=== PATIENT | female | born 1980 | race Hispanic/Latino ===

== ENCOUNTER 2020-08-03 17:03 | Emergency (ER) | payer BC ==
[2020-08-03] MEDS ORDERED: FLUORESCEIN SODIUM 1 MG/WRAP ONE (17:47)
[2020-08-03] MEDS ORDERED: TETRACAINE HCL 0.5% 4ML OPTH ONE (17:47)
--- NOTE | 2020-08-03 17:54 | ER ---
Nurse's Notes [facility] Name: Rica Alegre Age: 40 yrs Sex: Female : 1980 Arrival Date: 08/03/2020 Time: 17:04 Bed 13 Private MD: Carolina Doss Diagnosis: Conjunctivitis;Chemosis;Injury of conjunctiva and corneal abrasion without foreign body Presentation: 08/03 17:06 Chief complaint: Chief complaint: "I was just cutting some jimenez with a little handsaw aa5 and some debris got my left eye and now it's red". 17:06 Coronavirus screen: Client denies travel out of the [place] in the last 14 days. At this aa5 time, the client does not indicate any symptoms associated with coronavirus-19. Ebola Screen: Patient negative for fever greater than or equal to 101.5 degrees Fahrenheit, and additional compatible Ebola Virus Disease symptoms. Initial Sepsis Screen: Does the patient meet any 2 criteria? No. Patient's initial sepsis screen is negative. Does the patient have a suspected source of infection? No. Patient's initial sepsis screen is negative. Risk Assessment: Do you want to hurt yourself or someone else? Patient reports no desire to harm self or others. Onset of symptoms was August 03, 2020. 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 - Social history:: Smoking status: Patient denies any tobacco usage or history of. Screenin:15 Abuse screen: Denies threats or abuse. Denies injuries from another. Nutritional ca1 screening: No deficits noted. Tuberculosis screening: No symptoms or risk factors identified. Fall Risk None identified. Assessment: 17:15 General: Appears in no apparent distress. comfortable, Behavior is calm, cooperative, ca1 appropriate for age. Pain: Complains of pain in left eye Pain currently is 8 out of 10 on a pain scale. Pain began 1 hour ago. Neuro: Level of Consciousness is awake, alert, obeys commands, Oriented to person, place, time, situation. EENT: Eyes are tearing on outer aspect of conjuctiva of left eye and inner aspect of conjunctiva of left eye Sclera/Cornea are reddened in outer aspect of conjuctiva of left eye and inner aspect of conjunctiva of left eye. Derm: Skin is intact, is healthy with good turgor, Skin is pink, warm \\T\\ dry. Musculoskeletal: Circulation, motion, and sensation intact. Capillary refill < 3 seconds. 18:30 Reassessment: Patient appears in no apparent distress at this time. Patient and/or ca1 family updated on plan of care and expected duration. Pain level reassessed. Patient is alert, oriented x 3, equal unlabored respirations, skin warm/dry/pink. Vital Signs: 17:06 Resp 16 S; Temp 97.7(TE); aa5 17:35 BP 118 / 95; ca1 17:35 Pulse 91; Pulse Ox 98% on R/A; Weight 86.18 kg (R); Height 5 ft. 4 in. (162.56 cm) (R); ca1 18:30 BP 121 / 89; Pulse 86; Resp 16; Pulse Ox 99% on R/A; ca1 17:35 Body Mass Index 32.61 (86.18 kg, 162.56 cm) ca1 ED Course: 17:04 Patient arrived in ED. ag5 17:05 Carolina Doss MD is Private Physician. ag5 17:06 Arm band placed on Patient placed in an exam room, on a stretcher. aa5 17:11 Rocio Davey, JITENDRA is Primary Nurse. ca1 17:13 Dolores Jones FNP-C is [facility]. snw 17:13 Mya Sarah MD is Attending Physician. snw 17:15 Patient did not have IV access during this emergency room visit. ca1 17:23 Triage completed. aa5 17:36 Patient has correct armband on for positive identification. Bed in low position. Call ca1 light in reach. Side rails up X 1. Pulse ox on. NIBP on. Warm blanket given. Head of bed elevated. 17:52 Assist provider with eye exam of left eye. using fluorescein stain, Performed by Dolores ca1 Karen FONSECA Patient tolerated well. 17:53 Smitha Irving MD is Referral Physician. snw Administered Medications: 17:50 Drug: Tetracaine Drops 0.5 % 1 drops {Note: by JHONATAN Bernal.} Route: Ophthalmic; Site: ca1 left eye; 17:52 Drug: Fluorescein Strip 1 strip {Note: by JHONATAN Bernal.} Route: Ophthalmic; Site: left ca1 eye; 18:05 Drug: [place] 5 mg-325 mg 1 tabs {Note: rass 0.} Route: PO; ca1 18:47 Follow up: Response: No adverse reaction; Pain is decreased; RASS: Alert and Calm (0) ca1 18:10 Drug: ZyrTEC - Cetirizine 10 mg Route: PO; ca1 18:48 Follow up: Response: No adverse reaction ca1 18:13 Drug: Tetanus-Diphtheria Toxoid Adult 0.5 ml {Pediatric Allergist: [employer]. Exp: ca1 12/11/2021. Lot #: [id number]. } Route: IM; Site: right deltoid; 18:48 Follow up: Response: No adverse reaction ca1 18:47 Drug: ERYTHromycin Ointment 1 application Route: Ophthalmic; Site: left eye; ca1 Outcome: 17:54 Discharge ordered by . snw 18:51 Discharged to home ambulatory, with family. ca1 18:51 Condition: stable 18:51 Discharge instructions given to patient, Instructed on discharge instructions, follow up and referral plans. medication usage, Demonstrated understanding of instructions, follow-up care, medications, Prescriptions given X 3. 18:51 Patient left the ED. ca1 Signatures: Dolores Jones FNP-C TEXTILE COLORIST DYER-Annalise Sears RN RN aa5 AcRocio coffman RN RN ca1 Tanja Willard ag5 Corrections: (The following items were deleted from the chart) 18:51 18:15 Assist provider with eye exam of left eye. using fluorescein stain, Performed by ca1 Dolores FONSECA Patient tolerated well. ca1
--- NOTE | 2020-08-03 17:54 | EDPHYS ---
Physician Documentation [facility] Name: Rica Alegre Age: 40 yrs Sex: Female : 1980 Arrival Date: 08/03/2020 Time: 17:04 Bed 13 Private MD: Carolina Doss ED Physician Mya Sarah HPI: 08/03 18:05 This 40 yrs old Female presents to ER via Ambulatory with complaints of snw Foreign Body In Eye. 18:05 The patient is experiencing foreign body sensation, pain, redness, tearing. Onset: The snw symptoms/episode began/occurred suddenly, today. Duration: the symptoms are continuous. Associated signs and symptoms: Pertinent positives: None. Patient wears glasses. Severity of symptoms: At their worst the symptoms were moderate severe in the emergency department the symptoms are unchanged. The patient has not experienced similar symptoms in the past. It is unknown whether or not the patient has recently seen a physician. 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 - Social history:: Smoking status: Patient denies any tobacco usage or history of. ROS: 18:04 Constitutional: Negative for fever, chills, and weight loss, ENT: Negative for injury, snw pain, and discharge, Neck: Negative for injury, pain, and swelling, Cardiovascular: Negative for chest pain, palpitations, and edema, Respiratory: Negative for shortness of breath, cough, wheezing, and pleuritic chest pain, Abdomen/GI: Negative for abdominal pain, nausea, vomiting, diarrhea, and constipation, Back: Negative for injury and pain, : Negative for injury, bleeding, discharge, and swelling, MS/Extremity: Negative for injury and deformity, Skin: Negative for injury, rash, and discoloration, Neuro: Negative for headache, weakness, numbness, tingling, and seizure, Psych: Negative for depression, anxiety, suicide ideation, homicidal ideation, and hallucinations. 18:04 Eyes: Positive for foreign body sensation, redness, tearing, of the outer aspect of conjuctiva of left eye, iris of left eye and inner aspect of conjunctiva of left eye. Exam: 18:04 Constitutional: This is a well developed, well nourished patient who is awake, alert, snw and in no acute distress. Head/Face: Normocephalic, atraumatic. ENT: Nares patent. No nasal discharge, no septal abnormalities noted. Tympanic membranes are normal and external auditory canals are clear. Oropharynx with no redness, swelling, or masses, exudates, or evidence of obstruction, uvula midline. Mucous membranes moist. Neck: Trachea midline, no thyromegaly or masses palpated, and no cervical lymphadenopathy. Supple, full range of motion without nuchal rigidity, or vertebral point tenderness. No Meningismus. Chest/axilla: Normal chest wall appearance and motion. Nontender with no deformity. No lesions are appreciated. Cardiovascular: Regular rate and rhythm with a normal S1 and S2. No gallops, murmurs, or rubs. Normal PMI, no JVD. No pulse deficits. Respiratory: Lungs have equal breath sounds bilaterally, clear to auscultation and percussion. No rales, rhonchi or wheezes noted. No increased work of breathing, no retractions or nasal flaring. Abdomen/GI: Soft, non-tender, with normal bowel sounds. No distension or tympany. No guarding or rebound. No evidence of tenderness throughout. Back: No spinal tenderness. No costovertebral tenderness. Full range of motion. Skin: Warm, dry with normal turgor. Normal color with no rashes, no lesions, and no evidence of cellulitis. MS/ Extremity: Pulses equal, no cyanosis. Neurovascular intact. Full, normal range of motion. Neuro: Awake and alert, GCS 15, oriented to person, place, time, and situation. Cranial nerves II-XII grossly intact. Motor strength 5/5 in all extremities. Sensory grossly intact. Cerebellar exam normal. Normal gait. Psych: Awake, alert, with orientation to person, place and time. Behavior, mood, and affect are within normal limits. 18:04 Eyes: Periorbital structures: appear normal, Pupils: no acute changes, Extraocular movements: no acute changes, Conjunctiva: chemosis, that is mild, in left eye, at 3 o'clock, injected, in the left eye, tearing noted. Vital Signs: 17:06 Resp 16 S; Temp 97.7(TE); aa5 17:35 BP 118 / 95; ca1 17:35 Pulse 91; Pulse Ox 98% on R/A; Weight 86.18 kg (R); Height 5 ft. 4 in. (162.56 cm) (R); ca1 18:30 BP 121 / 89; Pulse 86; Resp 16; Pulse Ox 99% on R/A; ca1 17:35 Body Mass Index 32.61 (86.18 kg, 162.56 cm) ca1 MDM: 17:39 Patient medically screened. snw 17:54 Data reviewed: vital signs, nurses notes. Data interpreted: Pulse oximetry: on room air snw is 98 %. Interpretation: normal. Counseling: I had a detailed discussion with the patient and/or guardian regarding: the historical points, exam findings, and any diagnostic results supporting the discharge/admit diagnosis, the presence of at least one elevated blood pressure reading (>120/80) during this emergency department visit. Response to treatment: the patient's symptoms have mildly improved after treatment. Special discussion: I have referred the patient to see his PCP for further evaluation of high blood pressure. Based on the history and exam findings, there is no indication for further emergent testing or inpatient evaluation. I discussed with the patient/guardian the need to see the opthamologist for further evaluation of the symptoms, I discussed with the patient/guardian the need to see the primary care provider for further evaluation of the symptoms. Administered Medications: 17:50 Drug: Tetracaine Drops 0.5 % 1 drops {Note: by Dolores, GOLF CLUB HEAD INSPECTOR.} Route: Ophthalmic; Site: ca1 left eye; 17:52 Drug: Fluorescein Strip 1 strip {Note: by Dolores, GOLF CLUB HEAD INSPECTOR.} Route: Ophthalmic; Site: left ca1 eye; 18:05 Drug: [place] 5 mg-325 mg 1 tabs {Note: rass 0.} Route: PO; ca1 18:47 Follow up: Response: No adverse reaction; Pain is decreased; RASS: Alert and Calm (0) ca1 18:10 Drug: ZyrTEC - Cetirizine 10 mg Route: PO; ca1 18:48 Follow up: Response: No adverse reaction ca1 18:13 Drug: Tetanus-Diphtheria Toxoid Adult 0.5 ml {Director Employee Safety And Health: [employer]. Exp: ca1 12/11/2021. Lot #: [id number]. } Route: IM; Site: right deltoid; 18:48 Follow up: Response: No adverse reaction ca1 18:47 Drug: ERYTHromycin Ointment 1 application Route: Ophthalmic; Site: left eye; ca1 Disposition: 08/04 08:52 Co-signature as Attending Physician, Mya Sarah MD. ma2 Disposition: 08/03/20 17:54 Discharged to Home. Impression: Conjunctivitis, Chemosis, Injury of conjunctiva and corneal abrasion without foreign body. - Condition is Stable. - Discharge Instructions: Allergic Conjunctivitis, Adult, Corneal Abrasion, How to Use Eye Drops and Eye Ointments, VIS, Tetanus, Diphtheria (Td) - CDC. - Prescriptions for Zyrtec 10 mg Oral Tablet - take 1 tablet by ORAL route once daily As needed; 20 tablet. Diclofenac Sodium 75 mg Oral Tablet Sustained Release - take 1 tablet by ORAL route 2 times per day; 30 tablet. tobramycin 0.3 % Ophthalmic drops - instill 2 drop by OPHTHALMIC route every 4 hours to left eye; 1 Container. - Work release form, Medication Reconciliation Form, Thank You Letter, Antibiotic Education, Prescription Opioid Use form. - Follow up: Smitha Irving MD; When: 2 - 3 days; Reason: Recheck today's complaints, Continuance of care, Re-evaluation by your physician. Signatures: Dolores Jones, TEST DECK SUPERVISOR-C TEST DECK SUPERVISOR-Csnw Annalise Rowell, RN RN aa5 Mya Sarah MD MD ma2 Rocio Davey RN RN ca1 Corrections: (The following items were deleted from the chart) 08/03 18:51 17:54 08/03/2020 17:54 Discharged to Home. Impression: Conjunctivitis; Chemosis; Injury ca1 of conjunctiva and corneal abrasion without foreign body. Condition is Stable. Forms are Medication Reconciliation Form, Thank You Letter, Antibiotic Education, Prescription Opioid Use. Follow up: Smitha Irving; When: 2 - 3 days; Reason: Recheck today's complaints, Continuance of care, Re-evaluation by your physician. snw
[2020-08-03] MEDS ORDERED: CETIRIZINE HCL 5 MG TABLET ONE (18:21)
[2020-08-03] MEDS ORDERED: HYDROCODONE/APAP 5/325 MG TAB ONE (18:22)
[2020-08-03] MEDS ORDERED: TETANUS & DIPHTHERIA TOX,ADULT 0.5 ML VIAL ONE (18:22)
[2020-08-03] MEDS ORDERED: ERYTHROMYCIN 1 APPL/1 GM TUBE OP ONE (19:00)
--- OUTSIDE RECORDS SUMMARY | 2020-08-03 19:07 | XMS REPORT | Continuity of Care Document ---
:1980 Author Organization [facility] t Address [address] [place] [address] Care Team Providers Name Role Phone Nelly Bradley MD Attending Clinician 1, [facility] Attending Clinician Unavailable Lamar Doss Attending Clinician Kirk FULTON Admitting Clinician Problems Condition Condition Condition Status Onset Resolution Last Treating Co mments Source Name Details Category Date Date Treatment Clinician Date Allergic All[facility] Obesity Obesity Problem [facility] Hyperlipid Hyperlipid Problem Active [facility] Hiatal Hiatal Problem Active [facility] Urticaria Urticaria Problem Active [facility] Acquired Acquired Problem Active [facility] hypothyroi hypothyroi [facility] GERD GERD Problem Active [facility] (gastroeso (gastroeso [facility] - phageal phageal Memoria reflux reflux l disease) disease) Outpat i ent Clinics Attention Attention Problem Active [facility] deficit deficit [facility] - hyperactiv 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 Medications Ordered Filled Start Stop Current Ordering Indication Dosage Frequency Signature Comments Components Source Medication Medication Date Date Medication? Clinician (SIG) Name Name Famotidine Famotidine Yes Na Doss [address] [facility] 8-17 at bedtime [facility] - 00:00: as needed [facility] 00 [facility] Lovastatin Lovastatin Yes Na Doss [address] [facility] with the [facility] - evening [facility] meal [facility] Pravastatin Pravastatin Yes Na Doss [address] [facility] Sodium Sodium [facility] Augmentin Augmentin Yes Na Doss [address] [facility] Zantac Zantac Yes Na Doss [address] [facility] at bedtime [facility] Cetirizine Cetirizine Yes Na Doss [address] [facility] HCl HCl [facility] Flonase Flonase Yes Na Doss [address] [facility] each [facility] - nostril [facility] Protonix Protonix Yes Na Doss [address] [facility] Oxybutynin Oxybutynin Yes Na Doss TAKE [address] [facility] Chloride ER Chloride ER TABLET BY [facility] - MOUTH [facility] EVERY DAY [facility] Levothyroxi Levothyroxi Yes Na Doss [address] [facility] ne Sodium ne Sodium IN THE [place] [facility] - MORNING ON [facility] AN EMPTY l [facility] ent ORALLY 90 Clinics DAYS Rosuvastati Rosuvastati Yes Na Doss TAKE [address] [facility] n Calcium n Calcium TABLET BY [facility] - MOUTH [facility] EVERY DAY [facility] Procedures This patient has no known procedures. Encounters Start End Encounter Admission Attending Care Care Encounter Source Date/Time Date/Time Type Type Clinicians Facility Department ID 2020-04-12 2020-04-12 Outpatient Irina Alvarenga [id number] [facility] 10:34:00 10:34:00 [facility] Medicine Outpati ent Clinics 2020-02-23 2020-02-23 [facility] [id number] [facility] 10:20:00 10:20:00 [facility] Medicine Outpati ent Clinics 2020-02-17 2020-02-17 [facility] [id number] 06:40:00 09:07:00 Encounter Nelly Davison [id number] [place] [id number] Surgical [id number] Center [id number] 2020-02-16 2020-02-16 Moisture Meter Operator 1, Adc Lab [facility] [id number] 09:19:34 09:34:34 Visit [place] [id number] [place] [id number] [place] [id number] 2020-02-16 2020-02-16 Telephone Carolina Doss [facility] [id number] 00:00:00 00:00:00 Health [id number] [place] [id number] Professio [phone] nal 0[address] 2020-02-06 2020-02-06 [facility] [id number] [facility] 09:45:00 09:45:00 [facility] Medicine Outpati ent Clinics 2019-10-17 2019-10-17 [facility] [id number] [facility] 14:00:00 14:00:00 t Specialty/U Riri kes - Specialty rology [facility] a /Urology Clinic l Clinic Outpati ent Clinics 2019-10-01 2019-10-01 [facility] [id number] [facility] 16:12:00 16:12:00 [email or web address] l Medicine Outpati ent Clinics 2019-09-26 2019-09-26 [facility] [id number] 09:58:00 09:58:00 [email or web address] Medicine Outpati [facility] Clinics 2019-09-26 2019-09-26 [facility] [id number] [facility] 09:55:00 09:55:00 [facility] Medicine Outpati ent Clinics 2019-09-24 2019-09-24 [facility] [id number] [facility] 10:20:00 10:20:00 [facility] Medicine Outpati ent Clinics 2019-05-02 2019-05-02 [facility] [id number] 09:20:00 09:20:00 [facility] Medicine Outpati ent Clinics 2019-04-11 2019-04-11 [facility] [id number] [facility] 09:30:00 09:30:00 [facility] Medicine Outpati ent Clinics 2018-11-27 2018-11-27 [facility] [id number] 11:00:00 11:00:00 [facility] Medicine Outpati ent Clinics Results This patient has no known results.
== END 2020-08-03 18:51 | disposition home or self-care (01) ==
LOC: ER 17:03
DX: H10.9 Unspecified conjunctivitis (principal); H11.422 Conjunctival edema, left eye; S05.02XA Injury of conjunctiva and corneal abrasion without foreign body, left eye, initial encounter; Z23 Encounter for immunization
CPT/HCPCS: 90471; 90714; 99284